=== PATIENT | female | born 1965 | race Caucasian/White ===

== ENCOUNTER 2020-04-24 18:28 | Emergency (ER) | payer OTHER ==
[~2020-04-24] VITALS: Ht 162.6 cm; Wt 68.0 kg
[2020-04-24 18:50] VITALS: BP 157/87
--- NOTE | 2020-04-24 20:05 | NUR ---
PT PLACED IN BE 11 BY NURYS.
--- NOTE | 2020-04-24 20:15 | NUR ---
PT COMING IN TODAY WITH C/O LEFT KNEE PAIN RADIATING INTO LOWER LEG X 2 DAYS. DENIES ANY INJUSY OF ANY KIND. NO SWELLING, REDNESS, OR BRUISING NOTED TO KNEE OR LEG. PT ABLE TO MOVE TOES ON LEFT FOOT, PALABLE PEDAL PULSE. PT STATES CONSTANT PAIN, 5/10 AT REST AND 10/10 WEHN PUTTING PRESSURE ON LEG. PT PLACE IN BED, SIDERAIL UP X 1. NKA NO HX.
--- NOTE | 2020-04-24 20:40 | NUR ---
US AT BEDSIDE
[2020-04-24 22:02] VITALS: BP 148/87
--- NOTE | 2020-04-24 22:03 | NUR ---
Patient discharged with v/s stable. Written and verbal after care instructions given and explained. Patient alert, oriented and verbalized understanding of instructions. Ambulatory with steady gait. All questions addressed prior to discharge. ID band removed. Patient advised to follow up with PMD. Rx of TYLENOL AND AUGMENTIN given. Patient educated on indication of medication including possible reaction and side effects. Opportunity to ask questions provided and answered.
== END 2020-04-24 22:03 | disposition home or self-care (01) ==
LOC: MED 18:28
DX: M25.562 Pain in left knee (principal); K04.7 Periapical abscess without sinus
CPT/HCPCS: 73562; 93971; 99284

== ENCOUNTER 2020-11-13 13:44 | Emergency (ER) | payer OTHER ==
[~2020-11-13] VITALS: Ht 162.6 cm; Wt 72.6 kg
[2020-11-13 13:58] VITALS: BP 123/76
--- NOTE | 2020-11-13 14:40 | NUR ---
PT BROUGHT TO BED 6 VIA WHEELCHAIR
--- NOTE | 2020-11-13 14:43 | NUR ---
55 Y/O FEMALE C/O RIGHT KNEE PAIN S/P FALL WHILE WORKING OUT YESTERDAY PAIN IS 1/10 DESCRIBES ACHING NON-RADIATING WORST WHEN GETTING UP OR BEARING WEIGHT. PT DENIES N/V, DENIES FEVER/CHILLS. VSS. NOT IN DISTRESS. 4/5 STRENGTH ON RLE, 5/5 LLE. PT POSITIONED COMFORTABLY IN BED. ERMD MADE AWARE OF PT STATUS. DENIES PMH NKA
[2020-11-13] MEDS ORDERED: NAPR-54 PO (14:52)
[2020-11-13] MEDS ORDERED: KETOROLAC 30 MG/ML VIAL IM ONE (14:55)
[2020-11-13 15:02] VITALS: BP 123/76
== END 2020-11-13 15:03 | disposition home or self-care (01) ==
LOC: MED 13:44
DX: S83.91XA Sprain of unspecified site of right knee, initial encounter (principal); Z79.899 Other long term (current) drug therapy; W19.XXXA Unspecified fall, initial encounter; Y93.89 Activity, other specified; Y92.89 Other specified places as the place of occurrence of the external cause; Y99.8 Other external cause status
CPT/HCPCS: 73562; 99283

== ENCOUNTER 2021-06-23 19:54 | Emergency (ER) | payer OTHER ==
[~2021-06-23] VITALS: Ht 162.6 cm; Wt 65.8 kg
[~2021-06-23 19:54] MED LIST: NAPR-54 PO
[2021-06-23 20:46] VITALS: BP 158/103
--- NOTE | 2021-06-23 20:49 | NUR ---
TO LOBBY A/W BED AMBULATORY
[2021-06-23] MEDS ORDERED: ATA25 PO (21:59)
--- NOTE | 2021-06-23 23:52 | NUR ---
[id number] - ARLEN STATED PT LEFT LOBBY [id number] LWBS
== END 2021-06-23 23:52 | disposition left against medical advice (07) ==
LOC: MED 19:54
DX: I10 Essential (primary) hypertension (principal); F41.9 Anxiety disorder, unspecified; F17.200 Nicotine dependence, unspecified, uncomplicated; Z79.899 Other long term (current) drug therapy
CPT/HCPCS: 99283

== ENCOUNTER 2022-09-21 23:05 | Emergency (ER) | payer OTHER ==
[~2022-09-21] VITALS: Ht 162.6 cm; Wt 70.3 kg
[~2022-09-21 23:05] MED LIST changes: +ATA25 PO
[2022-09-21 23:27] VITALS: BP 196/90
--- NOTE | 2022-09-21 23:33 | NUR ---
TO LOBBY FOLLOWING TRIAGE
--- NOTE | 2022-09-22 00:55 | NUR ---
PT TAKEN TO BED 7
--- NOTE | 2022-09-22 01:02 | NUR ---
Dr. Gauthier examining patient.
[2022-09-22] MEDS ORDERED: BACITRACIN OINT 500 UNITS/GM PKT TP ONE (01:05)
[2022-09-22] MEDS ORDERED: HYDROcodone/APAP 5/325 MG 1 TAB TAB PO ONE (01:05)
[2022-09-22] MEDS ORDERED: IBUP-1842 PO (01:30)
[2022-09-22] MEDS ORDERED: BACTO TP (01:30)
[2022-09-22] MEDS ORDERED: ACET-9527 PO (01:30)
[2022-09-22 01:40] VITALS: BP 171/87
--- NOTE | 2022-09-22 01:58 | NUR ---
Patient discharged with v/s stable. Written and verbal after care instructions given and explained. Patient alert, oriented and verbalized understanding of instructions. All questions addressed prior to discharge. ID band removed. Patient advised to follow up with PMD. Rx of Rosenberg, Bactroban, and Motrin sent to preferred pharmacy. Patient educated on indication of medication including possible reaction and side effects. Opportunity to ask questions provided and answered.
== END 2022-09-22 01:58 | disposition home or self-care (01) ==
LOC: MED 23:05
DX: T22.20XA Burn of second degree of shoulder and upper limb, except wrist and hand, unspecified site, initial encounter (principal); T21.21XA Burn of second degree of chest wall, initial encounter; Z79.899 Other long term (current) drug therapy; Z79.1 Long term (current) use of non-steroidal anti-inflammatories (NSAID); Z79.2 Long term (current) use of antibiotics; X10.2XXA Contact with fats and cooking oils, initial encounter; Y93.G3 Activity, cooking and baking; Y92.89 Other specified places as the place of occurrence of the external cause; Y99.8 Other external cause status
CPT/HCPCS: 16000; 90471; 90715; 99283

== ENCOUNTER 2023-01-06 17:55 | Emergency (ER) | payer OTHER ==
[~2023-01-06] VITALS: Ht 160 cm; Wt 68.0 kg
[~2023-01-06 17:55] MED LIST changes: +ACET-9527 PO; +BACTO TP; +IBUP-1842 PO
[2023-01-06 18:09] VITALS: BP 157/87; PULSE 90; RESP 20; TEMP 97; O2SAT 100
--- NOTE | 2023-01-06 20:27 | NUR ---
Patient discharged with v/s stable. Written and verbal after care instructions given and explained. Patient verbalized understanding. Ambulatory with steady gait. All questions addressed prior to discharge. Advised to follow up with PMD.
== END 2023-01-06 20:27 | disposition home or self-care (01) ==
LOC: MED 17:55
DX: M79.671 Pain in right foot (principal); M77.51 Other enthesopathy of right foot and ankle; Z79.899 Other long term (current) drug therapy
CPT/HCPCS: 73630; 99283